=== PATIENT | female | born 1965 | race Caucasian/White ===

== ENCOUNTER 2020-09-01 11:30 | Outpatient (CLI) | payer OTHER, SELFPAY ==
--- NOTE | ~2020-09-01 | MM_ITS ---
EXAMINATION: MM screening [facility] w [place] HISTORY: Screening mammogram TECHNIQUE: Craniocaudal and mediolateral oblique 3-D tomosynthesis images were obtained and synthetic 2-D images were generated. CAD analysis was submitted and interpreted. COMPARISON: 02/19/2019, 11/26/2017, 04/27/2016 bilateral digital screening mammogram examinations BREAST PARENCHYMAL COMPOSITION: There are scattered areas of fibroglandular density. FINDINGS: Occasional small circumscribed low-density opacity is noted including bilateral axillary ta il benign-appearing stable lymph nodes. There is no evidence of suspicious mass, calcification, or ar chitectural distortion to suggest malignancy in either breast. There has been no suspicious interval change. IMPRESSION: 1. No mammographic evidence of malignancy. 2. Recommend routine screening mammography in one year. BI-RADS Category 2: Benign finding(s). Reviewed, dictated and finalized at location A. T TEACHER
== END 2020-09-01 11:31 | disposition home or self-care (01) ==
LOC: ANHIMG 11:34
PROVIDERS: PCP Internal Medicine; Visit Provider Obstetrics & Gynecology
DX: Z12.31 Encounter for screening mammogram for malignant neoplasm of breast (principal)
CPT/HCPCS: 77063; 77067

== ENCOUNTER 2023-06-13 14:04 | Outpatient (CLI) | payer OTHER, SELFPAY ==
--- NOTE | ~2023-06-13 | MM_ITS ---
EXAMINATION: MM screening [facility] BI w [place] HISTORY: Screening mammogram TECHNIQUE: Craniocaudal and mediolateral oblique 3-D tomosynthesis images were obtained and synthetic 2-D images were generated. CAD analysis was submitted and interpreted. COMPARISON: 09/01/2020, 02/18/2019, 11/26/2017 BREAST PARENCHYMAL COMPOSITION: There are scattered areas of fibroglandular density. FINDINGS: No suspicious mass, calcification, or architectural distortion are identified in either raymond ast to suggest malignancy. There has been no suspicious interval change. IMPRESSION: 1. No mammographic evidence of malignancy. 2. Recommend routine screening mammography in one year. BI-RADS Category 1: Negative Reviewed, dictated and finalized at location A.
== END 2023-06-13 14:05 ==
PROVIDERS: PCP Obstetrics & Gynecology; Visit Provider Obstetrics & Gynecology
DX: Z12.31 Encounter for screening mammogram for malignant neoplasm of breast (principal)
CPT/HCPCS: 77063; 77067

== ENCOUNTER 2024-09-12 09:31 | Outpatient (CLI) | payer OTHER, SELFPAY ==
--- NOTE | ~2024-09-12 | MR_ITS ---
EXAMINATION: MR hip LT wo con DATE: 09/12/2024 10:46 INDICATION: Left hip pain TECHNIQUE: Magnetic resonance imaging (MRI) of the left hip was performed without intravenous contra st. Sequences included full-field axial and coronal fluid sensitive FSE STIR and T1-weighted FSE, cor onal of the pelvis is smaller [id number] axial and coronal of the left hip with T2-weighted MAVRIC . COMPARISON: Radiographs dated 08/20/2024 FINDINGS: Bones: Mild lower lumbar levocurvature with severe spondylosis. Moderate osteoarthritis at the right hip. Mi ld bilateral sacroiliac osteoarthritis. There is metallic magnetic field artifact associated with a l eft total hip arthroplasty. There is some fibrofatty Modic type I degenerative endplate changes at th e lower lumbar spine most prominent at the right side of L4-L5. Bone marrow signal is otherwise michael l throughout with no fracture or pathologic marrow replacing process. Fluid: Symmetric physiologic amount of fluid within both hip joints. There is increased fluid signal overlyi ng the bilateral greater trochanters, left greater than right consistent with trochanteric bursitis. Soft tissues: Normal and symmetric muscle bulk and signal in the pelvis and visualized proximal thighs. The bilater al gluteus medius and minimus, iliopsoas and proximal hamstring tendons are normal. There is thickeni ng and mild increased signal along the femoral insertion of the distal left gluteus stanislav tendon co nsistent with moderate tendinopathy without discrete tear. Prominent diverticulosis along the sigmoid colon without adjacent comparison to suggest diverticulitis. 4.1 cm subserosal fibroid arising from the left side of the uterine fundus. No pathologically enlarged pelvic or inguinal lymphadenopathy. IMPRESSION: 1. Moderate tendinopathy without tear of the distal left gluteus stanislav tendon. 2. Bilateral trochanteric bursitis, mild on the right and moderate on the left. 3. Mild lower lumbar levocurvature with severe spondylosis. 4. Moderate right hip and mild bilateral sacroiliac osteoarthritis. 5. Left total hip arthroplasty without evidence joint effusion or adjacent abnormal marrow signal. Reviewed, dictated and finalized at location A. N RICE BROKER IMPRESSION: 1. Moderate tendinopathy without tear of the distal left gluteus stanislav tendon . 2. Bilateral trochanteric bursitis, mild on the right and moderate on the left. 3. Mild lower lumbar levocurvature with severe spondylosis. 4. Moderate right hip and mild bilateral sacroiliac osteoarthritis. 5. Left total hip arthroplasty without evidence joint effusion or adjacent abno rmal marrow signal.
== END 2024-09-12 09:32 | disposition home or self-care (01) ==
PROVIDERS: PCP Physician Assistant Surgical; Visit Provider Physician Assistant Surgical
DX: M70.62 Trochanteric bursitis, left hip (principal); Z96.642 Presence of left artificial hip joint; M47.896 Other spondylosis, lumbar region; M16.0 Bilateral primary osteoarthritis of hip; M46.1 Sacroiliitis, not elsewhere classified
CPT/HCPCS: 73721

== ENCOUNTER 2025-05-10 13:47 | Emergency (ER) | payer OTHER, SELFPAY ==
--- NOTE | 2025-05-10 13:49 | ED.EAR ---
HPI - Ear Problem General Chief complaint: Ear Stated complaint: Stick in L ear Time Seen by Provider: 05/10/25 13:48 Source: patient Mode of arrival: ambulatory Limitations: no limitations History of Present Illness HPI Narrative: Selena is a 59-year-old female patient presenting to the clinic today with complaints of possible eardrum injury/ear pain. She reports she was mowing the lawn on her rider when she was going up against some brush and a stick poked her in the left ear. Is having a swishing sound in her left ear and also sounds as though it was whistles when she blows her nose. Did notice some blood coming from her ear. Does have some muffled/hearing changes to the left ear. Related Data Home Medications ?Medication ?Instructions ?Recorded ?Confirmed ?Last Taken ?Type allopurinol 100 mg tablet 100 mg PO DAILY 08/20/24 11/12/24 Unknown History ergocalciferol (vitamin D2) 50,000 unit PO 08/20/24 11/12/24 Unknown History unit tablet tizanidine 4 mg capsule 4 mg PO QHS PRN 08/20/24 11/12/24 Unknown History ibuprofen 800 mg tablet 800 mg PO Q6H PRN 09/03/24 11/12/24 Unknown History Allergies Allergy/AdvReac Type Severity Reaction Status Date / Time shellfish derived Allergy Intermediate HIVES, Verified 11/12/24 09:31 ITCHY iodine Allergy Unknown unkown Verified 11/12/24 09:31 Review of Systems Review of Systems: Pertinent positives per HPI. Patient denies any fever, chills, rash, headache, visual changes, dizziness, cough, runny nose, sore throat, shortness of breath, chest pain, palpitations, nausea, vomiting, diarrhea, constipation, abdominal pain, or any urinary issues. [facility] Surgical History Surgical History History of carpal tunnel surgery History of back surgery History of cholecystectomy History of hip surgery Family History Family History Mother DVT (deep vein thrombosis) in Social History Social History Smoking status: Never smoker Alcohol intake: current Alcohol use details: Socially Do You Feel Safe in your Home?: Yes Lack of Transportation: No Lack of Food: Never True Current Housing: I Have Housing Concerned About Future Housing: No Difficulty Paying Gas/Electric Bills: No Difficulty Paying for Meds: No Currently Unemployed: No Education: Master's Degree or Higher Difficulty w/ Childcare or Family Care: No Comments At the time of my signature, I reviewed and agree with the nursing past medical, surgical, social, and family history. There is no relevant family history pertinent to the patient complaint. Exam Narrative: General: Well-developed, well nourished, in no apparent distress Head: Normocephalic, atraumatic Eyes: Pupils equally round and reactive to light bilaterally, EOM intact, sclera and conjunctive clear, no discharge, lids normal Ears: Right TMs intact and clear, ear canals clear, no drainage, left TM ruptured at 4:00 of the TM with blood in the ear canal canal, grossly hearing normal. Nose: Nares patent, no discharge, no inflammation, no sinus tenderness. Mouth: Oropharynx without lesions or masses, good dentition, MMM. Neck: Supple, trachea midline, no enlargement of anterior or posterior cervical nodes, no thyroid masses or goiter palpable. Cardio: Regular rate and rhythm, s1 and s2 normal, no murmur appreciated. Resp: Clear to auscultation bilaterally anteriorly and posteriorly, no rhonchi, rales, wheezing or rubs Course Course Emergency Course: Portions of this record may have been created with voice recognition software. Level of Care: Express Care Visit Vital Signs Vital signs: Vital Signs Temperature 36.4 C 05/10/25 13:53 Pulse Rate 63 05/10/25 13:53 Respiratory Rate 18 05/10/25 13:53 Blood Pressure 123/71 05/10/25 13:53 Pulse Oximetry 99 05/10/25 13:53 Oxygen Delivery Room Air 05/10/25 13:53 Temperature 36.4 C 05/10/25 13:53 Pulse Rate 63 05/10/25 13:53 Respiratory Rate 18 05/10/25 13:53 Blood Pressure 123/71 05/10/25 13:53 Pulse Oximetry 99 05/10/25 13:53 Oxygen Delivery Room Air 05/10/25 13:53 Vital signs reviewed Medical Decision Making MDM Narrative Medical decision making narrative: At the time of visit patient is resting comfortably on the exam table. Patient appears to be nontoxic. Complaints of possible eardrum injury/ear pain. She reports she was mowing the lawn on her rider when she was going up against some brush and a stick poked her in the left ear. Is having a swishing sound in her left ear and also sounds as though it was whistles when she blows her nose. Did notice some blood coming from her ear. Does have some muffled/hearing changes to the left ear. On exam patient has left ruptured eardrum 4:00of the TM with blood noted in the ear canal Plan: Patient has traumatic left eardrum rupture. Prescription for ofloxacin ear drops was sent to the pharmacy. Will have patient follow-up with Dr. Hernandez call his office tomorrow to schedule appointment. Supportive measures were discussed with the patient and they voiced understanding discharge instructions and agrees to treatment plan. Return precautions reviewed Differential Diagnosis Differential Diagnosis: Foreign body in the left ear canal, otitis externa, otitis media, eustachian tube dysfunction, cerumen impaction Vital Signs Vital Signs: Vital Signs Temperature 36.4 C 05/10/25 13:53 Pulse Rate 63 05/10/25 13:53 Respiratory Rate 18 05/10/25 13:53 Blood Pressure 123/71 05/10/25 13:53 Pulse Oximetry 99 05/10/25 13:53 Oxygen Delivery Room Air 05/10/25 13:53 Temperature 36.4 C 05/10/25 13:53 Pulse Rate 63 05/10/25 13:53 Respiratory Rate 18 05/10/25 13:53 Blood Pressure 123/71 05/10/25 13:53 Pulse Oximetry 99 05/10/25 13:53 Oxygen Delivery Room Air 05/10/25 13:53 Discharge Plan Discharge Clinical Impression: Traumatic rupture of tympanic membrane Qualifiers: Encounter type: initial encounter Laterality: left Qualified Code(s): S09.22XA - Traumatic rupture of left ear drum, initial encounter Patient Disposition: Home Condition: Stable Instructions: Antibiotic Form, Ruptured Eardrum (ED) Additional Instructions: Eardrum does appear to be ruptured. Instill ofloxacin ear drops as prescribed May take Tylenol/Motrin as needed for pain Do not submerge her head under water, get any water in your ear, or put anything in your ear other than the ear drops. Follow-up with your PCP in 5-7 days if symptoms persist Follow-up with Dr. Hall ENT- call tomorrow to schedule an appointment Patient Language: Romansh Prescriptions: New ofloxacin 0.3 % drops 5 drp otic (ear) BID 5 Days Qty: 5 0RF No Action ibuprofen 800 mg tablet 800 mg PO Q6H PRN allopurinol 100 mg tablet 100 mg PO DAILY ergocalciferol (vitamin D2) 50,000 unit tablet PO tizanidine 4 mg capsule 4 mg PO QHS PRN prednisone 10 mg tablet 10 mg PO BID Qty: 28 0RF meloxicam 15 mg tablet 15 mg PO DAILY Qty: 30 2RF tramadol 50 mg tablet 50 mg PO Q6H Qty: 40 0RF Follow-up/Referrals: Delbert Hall MD [Physician, Ear, Nose, Throat] - 1 Day Referral Note: Traumatic penetrating rupture of left tympanic membrane Clinical Impression: Traumatic rupture of tympanic membrane Maria De Jesus,MD Philomena [Primary Care Provider] Time of Disposition: 14:04 Quality NIHSS Nursing Documentation ED NIHSS nursing documentation: reviewed/agree
--- OUTSIDE RECORDS SUMMARY | 2025-05-10 13:51 | XMS_ITS | Encounter Summary ---
Author Organization [facility] Address [address] [place] [address] Care Team Providers Care Ticket Taker Ferryboat Name Role Phone Jodee Gallardo MD Primary Care Provider + [phone] Tri Centeno NP Primary Care Provider [phone] Philomena Pretty MD Primary Care Provider [phone] Encounter Details Date Type Department Care Team (Late st Contact Info) Description 07/07/2020 [facility] Message Enc [facility] Family & Internal Medicine [address] [id number] [facility] RE:lab results Social History Tobacco Use Types Packs/Day Years Used Date Smoking Tobacco: Never Smokeless Tobacco: Never Alcohol Use Standard Drinks/Week Comments Yes 0 (1 standard drink = 0.6 oz pur e alcohol) social AUDIT-C Answer Date Recorded Frequency of Alcohol Consumption Monthly or less 11/21/2018 Average Number of Drinks 1 or 2 019 Frequency of Binge Drinking Never 11/11 PHQ-2 Answer Date Recorded PHQ-2 Score - If the patient scores above 3, please move on to questions 3-9 0 06/23/2020 Comments No Sex and Gender Information Value Date Recorded Sex Assigned at Female 11/21/2018 10:16 AM CDT Legal Sex Female 7:49 PM CDT Gender Identity Female 11/21/2018 10:16 AM CDT Sexual Orientation Straight 11/21/2018 10 :16 AM CDT COVID-19 Exposure Response Date Recorded In the last month, have you been in contact with someone who was confirmed or suspected to have Coronavirus / COVID-19? No / Unsure 07/06/2020 10:11 AM SAMPLE MAKER ORIGINAL documented as of this encounter Plan of Treatment Not on file documented as of this encounter Visit Diagnoses Not on filedocumented in this encounter Additional Health Concerns Infection Onset Date Last Indicated Resolved Time COVID-19 Rule Out 06/26/2024 06/26/2024 06/26/2024 11:53 AM SAMPLE MAKER ORIGINAL documented as of this encounter Care Teams Ticket Taker Ferryboat Relationship Specialty Start Date End Date Jodee Gallardo MD PCP - General INTERNAL MEDICINE 11/08/18 11/16/22 [place] [address] [employer] [address] [place] [address] PCP - General Nurse Practitioner Family 11/17/2208/05 [place] [address] [employer] [address] [place] [address] PCP - General INTERNAL MEDICINE 06/25/24 documented as of this encounter
--- OUTSIDE RECORDS SUMMARY | 2025-05-10 13:51 | XMS_ITS | Clinical Summary ---
Author Organization [facility] Address [facility] [place] [address] Care Team Providers Care Upper Inspector Name Role Phone Philomena Pretty MD Primary Care Provider Allergies Active Allergy Reactions Criticality Noted Date Comments Shellfish Allergy Shortness of Breath High 3 Medications Cyanocobalamin (B-12) 1000 MCG SL TabIndications:Vit weaver B12 deficiency Place 1 tablet under the tongue daily. 30 tablet 10/19/19 22 Active Additional Information Patient not taking.Reported on 07/18/2024 metFORMIN ER, OSM, (FORTAMET) 500 MG 24 hr tabletIndications: PCO (polycystic ovaries) Take 1 tablet (500 mg total) by mouth daily with breakfast. 90 tablet 08/09/20 22 Active albuterol sulfate HFA (PROAIR HFA) 108 (90 Base) MCG/ACT inhalerIndications :Mild intermittent asthma without complication (HHS/HCC) Inhale 1-2 puffs into the lungs every 6 (six) hours as needed for Wheezing. 18 g 11 06/26/20 24 Active colchicine 0.6 MG tabletIndications: Gout of multiple sites, unspecified cause, unspecified chronicity Take 1 tablet (0.6 mg total) by mouth daily. 90 tablet 3 07/25/20 24 Active vitamin D2, ergocalciferol, (DRISDOL) 1.25 mg capsuleIndications :Vitamin D deficiency Take 1 capsule (1.25 mg total) by mouth every 7 days. 24 capsule 1 07/25/20 24 Active diclofenac EC (VOLTAREN) 75 MG tabletIndications: Primary osteoarthritis involving multiple joints Take 1 tablet (75 mg total) by mouth daily as needed. 90 tablet 1 09/09/19 Active allopurinol (ZYLOPRIM) 100 MG tabletIndications: Gout of multiple sites, unspecified cause, unspecified chronicity TAKE 1 TABLET(100 MG) BY MOUTH DAILY 90 tablet 1 02/01/20 Active Active Problems Problem Noted Date Diagnosed Date Trochanteric bursitis, left hip 10/01/2024 Low back pain 10/01/2024 Gout of multiple sites, unsp ecified cause, unspecified chronicity 09/22/2024 Vitamin D deficiency 09/22/2024 Right low back pain 08/11/2022 Hip stiffness, left 12/01/2020 Left-sided low back pain with sciatica Dermatitis 06/23/2020 Anemia, unspecified type 06/23/2020 Stress fracture of metatarsa l bone of right foot with routine healing, subsequent encounter 10/10/2019 Foraminal stenosis of cervical region 09/01/2019 BMI 31.0-31.9,adult 11/08/2017 Osteoarthritis of multiple joints 01/07/2016 Vitamin B12 deficiency 01/07/2016 Asthma, intermittent (HHS/HCC) 10/21/2014 Acid reflux disease 08/27/2012 History of left hip replacement 01/04/2010 Resolved Problems Problem Noted Date Diagnosed Date Resolved Date Screen for colon cancer 02/04/201804/13 Immunizations Immunization Administration Dates Next Due Fluzone 6 Months+ Quad (0.5 mL Prefilled Syringe ) 08/09/2022 Influenza (Generic) 06/05/2017 Influenza Adult (Generic) 06/05/2017 MODERNA COVID-19 (12+) MRNA, LNP-S, PF, 100 MCG/ 0.5 ML DOSE 11/02/2020 PFIZER COVID-19 BIVALENT (12 +) mRNA, LNP-S, PF, 30 MCG/0.3 ML DOSE 08/09/2022 Tdap (Adacel) 01/05/2016 Tdap (Generic) 01/05/2016 Family History Medical History Relation Comments Diabetes Brother Epilepsy Brother Hypertension Father Relation Status Comments Brother Father Social History Tobacco Use Types Packs/Day Years Used Date Smoking Tobacco: Never Smokeless Tobacco: Never Tobacco Cessation:Counseling Given: No Comments:non smoker Alcohol Use Standard Drinks/Week Comments Yes 0 (1 standard drink = 0.6 oz pur e alcohol) social AUDIT-C Answer Date Recorded Frequency of Alcohol Consumption Monthly or less 11/21/2018 Average Number of Drinks 1 or 2 019 Frequency of Binge Drinking Never 11/11 PHQ-2 Answer Date Recorded Patient Health Questionnaire-2 Score 0 07/11/2024 Comments No Sex and Gender Information Value Date Recorded Sex Assigned at Female 11/21/2018 10:16 AM CDT Legal Sex Female 7:49 PM CDT Gender Identity Female 11/21/2018 10:16 AM CDT Sexual Orientation Straight 11/21/2018 10 :16 AM CDT Last Filed Vital Signs Vital Sign Reading Time Taken Comments Blood Pressure 122/77 07/18/2024 10:08 AM PRIME BROKER Pulse 64 07/18/2024 10:08 AM PRIME BROKER Temperature 36.4 C (97.6 F) 07/18/2024 10:08 AM PRIME BROKER Respiratory Rate 16 07/18/2024 10:08 AM PRIME BROKER Oxygen Saturation 98% 07/18/2024 10:08 AM PRIME BROKER Inhaled Oxygen Concentration - - Weight 86.3 kg (190 lb 3.2 oz) 07/18/2024 10:08 AM PRIME BROKER Height 167.6 cm (5' 6) 07/18/2024 10:08 AM PRIME BROKER Body Mass Index 30.7 07/18/2024 10:08 AM PRIME BROKER Plan of Treatment Health Maintenance Due Date Last Done Comments Cervical Cancer Screening Pa p Smear (Age 30 to 64) Every 3 Years 1963 Annual Physical 11/29/1966 Pneumococcal Vaccine: 50+ Years (1 of 2 - PCV) 11/29/1982 Cervical Cancer Screening Pa p with HPV Testing (Age 30 to 64) Every 5 Years 11/29/1993 Cervical Cancer Screening wi th HPV 11/29/1993 Zoster Vaccines (1 of 2) 11/29/2013 Mammogram Screening 09/01/2022 09/01/2020, 09/01/2020 RSV Immunization or 60+ Years (1 - Risk 60-74 years 1-dose series) 2023 PHQ-2 (Physician Milmay) 08/13/2024 07/11/2024 COVID-19 Vaccine (3 - 2024-2 6 season) 2025 08/09/2022, 11/02/2020 DTaP, Tdap and Td Vaccines ( 3 - Td or Tdap) 01/04/2026 01/05/2016, 01/05/2016 Colorectal Cancer Screening Colonoscopy (10 Years) 12/27/2028 12/27/2018 Hepatitis C Completed 08/11/2022, 10/12/2021 Meningococcal B Vaccine Aged Out No l onger eligible based on patient's age to complete this topic Meningococcal Vaccine Aged Out No liz amado eligible based on patient's age to complete this topic RSV Immunizations Under 20 Months Aged Out No longer eligible b ased on patient's age to complete this topic Procedures Procedure Name Priority Date/Time Associated Diagnosis Comments HEPATITIS C ANTIBODY Routine 08/11/2022 2:55 PM PRIME BROKER Encounter for hepatitis C screening test for low risk patient MAMMOGRAM GENERIC (SCAN ORDER) 09/01/2020 COLONOSCOPY GENERIC (SCAN ORDER) 12/27/2018 from Last 3 Months or Most Recently Relevant to Health Maintenance Results * HEPATITIS C AB ([facility] ONLY) (08/11/2022 2:55 PM PRIME BROKER) HEPATITIS C AB NON-REACTI VE NON-REACTI VE 08/11/2022 8:07 PM PRIME BROKER [facility] 08/11/2022 2:55 PM PRIME BROKER Jodee Gallardo MD LABORATORY Final Result [facility] [address] [place] [address], [place] [phone] * MAMMOGRAM GENERIC (09/01/2020) Anatomical Region Laterality Modality Other 09/01/2020 Narrative 09/01/2020 Ordered by an unspecified provider. us Documents Scanned SCANNING Final Result * COLONOSCOPY GENERIC (12/27/2018) 12/27/2018 Narrative 12/27/2018 Ordered by an unspecified provider. us Documents Scanned SCANNING Final Result from Last 3 Months or Most Recently Relevant to Health Maintenance Insurance [employer] Care Teams Upper Inspector Relationship Specialty Start [place] [id number] [address] PCP - General INTERNAL MEDICINE 06/25/24
--- OUTSIDE RECORDS SUMMARY | 2025-05-10 13:51 | XMS_ITS | Encounter Summary ---
Author Organization [facility] Address [address] [place] [address] Care Team Providers Care Bronze Chaser Name Role Phone Jodee Gallardo MD Primary Care Provider + [phone] Tri Centeno NP Primary Care Provider + [phone] Philomena Pretty MD Primary Care Provider [phone] Encounter Details Date Type Department Care Team (Late st Contact Info) Description 06/29/2020 Prep for Procedure [facility] [address] [place] [address] Irais Chung MD [address] [place] [address] Social History Tobacco Use Types Packs/Day Years [...] have Coronavirus / COVID-19? No / Unsure 06/29/2020 3:10 PM GARLAND MACHINE OPERATOR documented as of this encounter Plan of Treatment Not on file documented as of this encounter Results * PRE-SURGICAL/PRE-PROCEDURE CORONAVIRUS (COVID 19) (07/03/2020 10:07 AM GARLAND MACHINE OPERATOR) CORONAVIRUS SARS COV 2 PCR (RESP) NOT DETECTED NOT DETECTED 07/05/2020 2:45 AM GARLAND MACHINE OPERATOR [employer] [facility] Comment: A Not Detected (negative) test result for this test means that SARS- CoV-2 RNA was not present in the specimen above the limit of detection. A negative result does not rule out the possibility of COVID-19 and should not be used as the sole basis for treatment or patient management decisions. If COVID-19 is still suspected, based on exposure history together with other clinical findings, re-testing should be considered in consultation with public health authorities. Laboratory test results should always be considered in the context of clinical observations and epidemiological data in making a final diagnosis and patient management decisions. Please review the Fact Sheets and FDA authorized labeling available for health care providers and patients using the following websites: https://www.[employer].YiBai-shopping/home/Covid-19/HCP/NAAT/fact-sheet2 https://www.[employer].YiBai-shopping/home/Covid-19/Patients/NAAT/ fact-sheet2 This test has been authorized by the FDA under an Emergency Use Authorization (EUA) for use by authorized laboratories. Due to the current public health emergency, [employer] is receiving a high volume of samples from a wide variety of swabs and media for COVID-19 testing. In order to serve patients during this public health crisis, samples from appropriate clinical sources are being tested. Negative test results derived from specimens received in non-commercially manufactured viral collection and transport media, or in media and sample collection kits not yet authorized by FDA for COVID-19 testing should be cautiously evaluated and the patient potentially subjected to extra precautions such as additional clinical monitoring, including collection of an additional specimen. Methodology: Nucleic Acid Amplification Test (NAAT) includes RT-PCR or TMA Additional information about COVID-19 can be found at the [employer] website: www.AmericanTowns.com.YiBai-shopping/Covid19. Test performed at [facility] [place] [address] [address] [facility] [place] [address] Director: BEN MARCANO DO,MPH FIRST TEST NO 07/03/2020 7:16 AM [facility] EMPLOYED IN HEALTHCARE NO 07/03/2020 7:16 AM [facility] SYMPTOMATIC DEFINED BY CDC NO 07/03/2020 7:16 AM [facility] DATE OF SYMPTOM ONSET UNKNOWN 07/03/2020 10:12 AM [facility] HOSPITALIZATION STATUS NO 07/03/2020 7:16 AM [facility] PATIENT IN ICU NO 07/03/2020 7:16 AM [facility] RESIDENT OF [facility] NO 07/03/2020 7:16 AM [facility] NOT 07/03/2020 7:16 AM [facility] PATIENT'S RACE WHITE OR 07/03/2020 7:16 AM [facility] ETHNICITY NONHISPANIC 07/03/2020 7:16 AM [facility] SOURCE (QST) NASOPHARYNGEAL SWAB 07/03/2020 7:16 AM [facility] NASOPHARYNGEAL SWAB / Unknown 07/03/2020 10:07 AM GARLAND MACHINE OPERATOR us Irais Chung MD MICROBIOLOGY - GENERAL ORDERABLE S Final Result [facility] [address] [place] [address], [place] [phone] [facility] [address] [place] [address], documented in this encounter Visit Diagnoses Diagnosis Pre-op testing- Primary Preoperative examination, unspecified documented in this encounter Additional Health Concerns Infection Onset Date Last Indicated Resolved Time COVID-19 Rule Out 07/03/2020 07/03/2020 07/05/2020 2:45 AM GARLAND MACHINE OPERATOR COVID-19 Rule Out 06/26/2024 06/26/2024 06/26/2024 11:53 AM GARLAND MACHINE OPERATOR documented as of this encounter Care Teams Bronze Chaser Relationship Specialty Start Date End Date Jodee Gallardo MD PCP - General INTERNAL MEDICINE 11/08/18 11/16/22 [place] [address] [place], [place] [address] PCP - General Nurse Practitioner Family 11/17/2208/05 [place] [address] [place], [place] [address] PCP - General INTERNAL MEDICINE 06/25/24 documented as of this encounter
--- OUTSIDE RECORDS SUMMARY | 2025-05-10 13:51 | XMS_ITS | Encounter Summary ---
Author Organization [facility] Address [facility] [place] [address] Care Team Providers Care Space Controller Name Role Phone Tri Centeno NP Primary Care Provider + [phone] Philomena Pretty MD Primary Care Provider +[phone]- [phone] Encounter Details Date Type Department Care Team (Late st Contact Info) Description 02/07/2023 [employer] Message Counts include 234 beds at the [facility] - [facility] [address] [place], [place] [id number] [employer], [facility] Provider Air Quality Message Social History Tobacco Use Types Packs/Day Years Used Date Smoking Tobacco: Never Smokeless Tobacco: Never Comments:non smoker Alcohol Use Standard Drinks/Week Comments [...] please move on to questions 3-9 0 07/12/2022 Comments No Sex and Gender Information Value Date Recorded Sex Assigned at Female 11/21/2018 10:16 AM CDT Legal Sex Female 7:49 PM CDT Gender Identity Female 11/21/2018 10:16 AM CDT Sexual Orientation Straight 11/21/2018 10 :16 AM CDT documented as of this encounter Plan of Treatment Not on file documented as of this encounter Visit Diagnoses Not on filedocumented in this encounter Additional Health Concerns Infection Onset Date Last Indicated Resolved Time COVID-19 Rule Out 06/26/2024 06/26/2024 06/26/2024 11:53 AM METROLOGY TECHNICIAN Assessment Noted Time PHQ-9 Depression Total Score: 1 10/13/19 11:33 AM METROLOGY TECHNICIAN documented as of this encounter Care Teams Space Controller Relationship Specialty Start Date End Date Tri Centeno APPLICATIONS TESTER [address] [place] [address] PCP - General Nurse Practitioner Family 11/17/2208/05 [place] [address] [facility] [employer] [employer] [address] [place] [address] PCP - General INTERNAL MEDICINE 06/25/24 documented as of this encounter
--- OUTSIDE RECORDS SUMMARY | 2025-05-10 13:51 | XMS_ITS | Encounter Summary ---
Author Organization [facility] Address [address] [place] [address] Care Team Providers Care Building Maintenance Custodian Name Role Phone Philomena Pretty MD Primary Care Provider +[phone] Encounter Details Date Type Department Care Team (Late st Contact Info) Description 07/25/2024 [employer] Message [employer] [facility] Medical Group Family & Internal Medicine [address] [address] Jossie, [facility] Provider questions Social History Tobacco Use Types Packs/Day Years [...] filedocumented in this encounter Additional Health Concerns Assessment Noted Time PHQ-9 Depression Total Score: 6 06/26/20 24 11:56 AM LAUNDRY WORKER documented as of this encounter Care Teams Building Maintenance Custodian Relationship Specialty [place] [address] [address] PCP - General INTERNAL MEDICINE 06/25/24 documented as of this encounter
--- OUTSIDE RECORDS SUMMARY | 2025-05-10 13:51 | XMS_ITS | Encounter Summary ---
Author Organization [facility] Address [address] [place] [address] Care Team Providers Care Sap Integration Architect Name Role Phone Jodee Gallardo MD Primary Care Provider + [phone] Tri Centeno NP Primary Care Provider + [phone] Philomena Pretty MD Primary Care Provider [phone] Encounter Details Date Type Department Care Team (Late st Contact Info) Description 12/31/2019 Hosp Visit [facility] Physical Therapy [address] [place] [address] Celena Briggs, PT Social History Tobacco Use Types Packs/Day Years Used Date Smoking Tobacco: Never Smokeless Tobacco: Never Alcohol Use Standard Drinks/Week Comments Yes 0 (1 standard drink = 0.6 oz pur e alcohol) social AUDIT-C Answer Date Recorded Frequency of Alcohol Consumption Monthly or less 11/21/2018 Average Number of Drinks 1 or 2 019 Frequency of Binge Drinking Never 11/11 Comments No Sex and Gender Information Value [...] have Coronavirus / COVID-19? No / Unsure 12/24/2019 2:11 PM CDT documented as of this encounter Plan of Treatment Not on file documented as of this encounter Visit Diagnoses Not on filedocumented in this encounter Additional Health Concerns Infection Onset Date Last Indicated Resolved Time COVID-19 Rule Out 07/03/2020 07/03/2020 07/05/2020 2:45 AM PROFESSOR OF GEOLOGY COVID-19 Rule Out 06/26/2024 06/26/2024 06/26/2024 11:53 AM PROFESSOR OF GEOLOGY documented as of this encounter Care Teams Sap Integration Architect Relationship Specialty Start Date End Date Jodee Gallardo MD PCP - General INTERNAL MEDICINE 11/08/18 11/16/22 [place] [address] [email or web address] [place] [address] PCP - General Nurse Practitioner Family 11/17/2208/05 [place] [address] [email or web address] [place] [address] PCP - General INTERNAL MEDICINE 06/25/24 documented as of this encounter
--- OUTSIDE RECORDS SUMMARY | 2025-05-10 13:51 | XMS_ITS | Encounter Summary ---
Author Organization [facility] Address [facility] [place] [address] Care Team Providers Care Financial Cost Analyst Name Role Phone Jodee Gallardo MD Primary Care Provider + [phone] Tri Centeno NP Primary Care Provider + [phone] Philomena Pretty MD Primary Care Provider [phone] Encounter Details Date Type Department Care Team (Late st Contact Info) Description 12/27/2018 PHARMACY STUDENT ONLY [facility] Medical Group Priority Care - [address] [place] [address] Scanned, Documents Social History Tobacco Use Types Packs/Day Years [...] AM CDT documented as of this encounter OR Notes * Op Note - Zscanned, Documents - 12/27/2018 12:00 AM CDT DEVANTE PAINTER MD: ACCT: [id number] ADMIT/SERVICE DATE: 12/27/18 DISCHARGE DATE: 12/27/18 : 1965 PT TYPE: DEP SDC SEX: F ORD SITE: [facility] CHART DOCUMENT OPERATION RECORD DATE OF OPERATION: 12/27/2018 HISTORY: 53-YEAR-OLD FEMALE PRESENTS FOR A SCREENING COLONOSCOPY EVALUATION. PROCEDURE NOTE: INFORMED CONSENT OBTAINED EARLIER. PATIENT WAS SEEN IN THE OR, PLACED IN THE SUPINE LATERAL DECUBITUS POSITION AND SEDATED UNDER MAC ANESTHESIA. RECTAL EXAM NEGATIVE. PCF-190 COLONOSCOPE LUBRICATED AND INSERTED INTO THE RECTUM AND ADVANCED ALL THE WAY TO THE CECUM. PREP WAS EXCELLENT. CECUM WAS IDENTIFIED BY THE ILEOCECAL VALVE AND THE APPENDICEAL ORIFICE. CECUM, ASCENDING COLON, TRANSVERSE COLON, DESCENDING COLON, SIGMOID, AND RECTUM ARE ALL CAREFULLY VISUALIZED UPON WITHDRAWAL AND FOUND TO BE NEGATIVE. RETROFLEXION REVEALED MILD HEMORRHOIDS. SCOPE WITHDRAWN. FINDINGS: MILD HEMORRHOIDS, OTHERWISE NEGATIVE COLONOSCOPY TO THE CECUM WITH EXCELLENT BOWEL PREP. PLAN: RECOMMEND SCREENING COLONOSCOPY EVERY 5 TO 10 YEARS BASED ON RISK FACTORS. ELECTRONICALLY SIGNED BY SANDHYA GAMING MD 12/27/2018 01:30 P PK/RC 12/27/2018 12/27/2018 11:37 A JOB NO: [id number] DOC NO: [id number] CC: MD SANDHYA HAQUE MD documented in this encounter Plan of Treatment Not on file documented as of this encounter Visit Diagnoses Not on filedocumented in this encounter Additional Health Concerns Infection Onset Date Last Indicated Resolved Time COVID-19 Rule Out 07/03/2020 07/03/2020 07/05/2020 2:45 AM COOPERATIVE EXTENSION AGENT COVID-19 Rule Out 06/26/2024 06/26/2024 06/26/2024 11:53 AM COOPERATIVE EXTENSION AGENT documented as of this encounter Care Teams Financial Cost Analyst Relationship Specialty Start Date End Date Jodee Gallardo MD PCP - General INTERNAL MEDICINE 11/08/18 11/16/22 [place] [address] [place] [address] PCP - General Nurse Practitioner Family 11/17/2208/05 [place] [address] [facility] [address] [place] [address] PCP - General INTERNAL MEDICINE 06/25/24 documented as of this encounter
--- OUTSIDE RECORDS SUMMARY | 2025-05-10 13:52 | XMS_ITS | Encounter Summary ---
Author Organization [facility] Address [address] [place] [address] Care Team Providers Care Coach Operator Name Role Phone Philomena Pretty MD Primary Care Provider +[phone]- [phone] Encounter Details Date Type Department Care Team (Late st Contact Info) Description 07/18/2024 [employer]ant System[employer] Message Enc [facility] Medical Group Family & Internal Medicine [facility] [address] [place] [address] [place] [address] [place] [address] X-ray results please. Social History Tobacco Use Types Packs/Day Years [...] Total Score: 6 06/26/20 24 11:56 AM DIRECTOR PRINT documented as of this encounter Care Teams Coach Operator Relationship Specialty [place] [address] [place] [address] PCP - General INTERNAL MEDICINE 06/25/24 documented as of this encounter
[2025-05-10 13:53] VITALS: BP 123/71; PULSE 63; RESP 18; TEMP 36.4; O2SAT 99
== END 2025-05-10 14:26 | disposition home or self-care (01) ==
PROVIDERS: Emergency Provider Nurse Practitioner Family; PCP Internal Medicine
DX: S09.22XA Traumatic rupture of left ear drum, initial encounter (principal); W22.8XXA Striking against or struck by other objects, initial encounter
CPT/HCPCS: 99213; G0463

== ENCOUNTER 2025-06-02 08:03 | Outpatient (CLI) | payer OTHER, SELFPAY ==
--- OUTSIDE RECORDS SUMMARY | 2025-06-02 08:10 | XMS_ITS | Encounter Summary ---
Author Organization [facility] Address [address] [place] [address] Care Team Providers Care Import/Export Clerk Name Role Phone Philomena Pretty MD Primary Care Provider [phone] Encounter Details Date Type Department Care Team (Late st Contact Info) Description 07/18/2024 Media Time Conseilt Message Enc [facility] Medical Group Family & Internal Medicine [facility] [address] [place] [address] [place] [address] [place] [address] X-ray results please. Social History [...] Total Score: 6 06/26/20 24 11:56 AM PHYSICAL THERAPY RESIDENT documented as of this encounter Care Teams Import/Export Clerk Relationship Specialty [place] [address] [place] [address] PCP - General INTERNAL MEDICINE 06/25/24 documented as of this encounter
--- OUTSIDE RECORDS SUMMARY | 2025-06-02 08:10 | XMS_ITS | Encounter Summary ---
Author Organization [facility] Address [address] [place] [address] Care Team Providers Care Timber Inspector Name Role Phone Jodee Gallardo MD Primary Care Provider + [phone] Tri Centeno NP Primary Care Provider + [phone] Philomena Pretty MD Primary Care Provider [phone] Encounter Details Date Type Department Care Team (Late st Contact Info) Description 06/29/2020 Prep for Procedure [facility] [address] [place] [address] Irais Chung MD [address] [place] [address] Social History Tobacco Use Types Packs/Day [...] COVID-19? No / Unsure 06/29/2020 3:10 PM SKI MOLDER documented as of this encounter Plan of Treatment Not on file documented as of this encounter Results * PRE-SURGICAL/PRE-PROCEDURE CORONAVIRUS (COVID 19) (07/03/2020 10:07 AM SKI MOLDER) CORONAVIRUS SARS COV 2 PCR (RESP) NOT DETECTED NOT DETECTED 07/05/2020 2:45 AM SKI MOLDER [facility] [facility] Comment: A Not Detected (negative) test result [...] providers and patients using the following websites: https://www.[employer]..STWA/home/Covid-19/HCP/NAAT/fact-sheet2 https://www.[employer]STWA/home/Covid-19/Patients/NAAT/ fact-sheet2 This test has been authorized by the FDA under an Emergency Use Authorization (EUA) for use by authorized laboratories. Due to the current public health emergency, [facility] is receiving a high volume of samples [...] about COVID-19 can be found at the [facility] website: www.[employer].STWA/Covid19. Test performed at [facility] [address] [facility] [place] [address] Director: BEN MARCANO DO,MPH FIRST TEST NO 07/03/2020 7:16 AM [facility] EMPLOYED IN HEALTHCARE NO 07/03/2020 7:16 AM [facility] SYMPTOMATIC DEFINED BY CDC NO 07/03/2020 7:16 AM [facility] DATE OF SYMPTOM ONSET UNKNOWN 07/03/2020 10:12 AM [facility] HOSPITALIZATION STATUS NO 07/03/2020 7:16 AM [facility] PATIENT IN ICU NO 07/03/2020 7:16 AM [facility] RESIDENT OF [facility] NO 07/03/2020 7:16 AM [facility] NOT 07/03/2020 7:16 AM [facility] PATIENT'S RACE WHITE OR 07/03/2020 7:16 AM [facility] ETHNICITY NONHISPANIC 07/03/2020 7:16 AM [facility] SOURCE (QST) NASOPHARYNGEAL SWAB 07/03/2020 7:16 AM [facility] NASOPHARYNGEAL SWAB / Unknown 07/03/2020 10:07 AM SKI MOLDER us Irais Chung MD MICROBIOLOGY - GENERAL ORDERABLE S Final Result [facility] [address] [place] [address], [place] [phone] [facility] [address] [place] [address], documented in this encounter Visit Diagnoses Diagnosis Pre-op testing- Primary Preoperative examination, unspecified documented in this encounter Additional Health Concerns Infection Onset Date Last Indicated Resolved Time COVID-19 Rule Out 07/03/2020 07/03/2020 07/05/2020 2:45 AM SKI MOLDER COVID-19 Rule Out 06/26/2024 06/26/2024 06/26/2024 11:53 AM SKI MOLDER documented as of this encounter Care Teams Timber Inspector Relationship Specialty Start Date End Date Jodee Gallardo MD PCP - General INTERNAL MEDICINE 11/08/18 11/16/22 [place] [address] [place], [place] [id number] PCP - General Nurse Practitioner Family 11/17/2208/05 [place] [address] [place], [place] [address] PCP - General INTERNAL MEDICINE 06/25/24 documented as of this encounter
--- OUTSIDE RECORDS SUMMARY | 2025-06-02 08:10 | XMS_ITS | Encounter Summary ---
Author Organization [facility] Address [address] [place] [address] Care Team Providers Care Internet Salesperson Name Role Phone Philomena Pretty MD Primary Care Provider +[phone] Encounter Details Date Type Department Care Team (Late st Contact Info) Description 07/25/2024 RF Arrays Message [facility] Medical Group Family & Internal Medicine [address] [address] Jossie, [facility] Provider questions Social History Tobacco Use Types [...] Total Score: 6 06/26/20 24 11:56 AM AUXILIARY POWERPLANT OPERATOR documented as of this encounter Care Teams Internet Salesperson Relationship Specialty [place] [address] [address] PCP - General INTERNAL MEDICINE 06/25/24 documented as of this encounter
--- OUTSIDE RECORDS SUMMARY | 2025-06-02 08:10 | XMS_ITS | Encounter Summary ---
Author Organization [facility] Address [address] [place] [address] Care Team Providers Care Credit Union Manager Name Role Phone Jodee Gallardo MD Primary Care Provider + [phone] Tri Centeno NP Primary Care Provider + [phone] Philomena Pretty MD Primary Care Provider [phone] Encounter Details Date Type Department Care Team (Late st Contact Info) Description 12/31/2019 Hosp Visit [facility] Physical Therapy [address] [place] [address] Celena Briggs, PT Social History [...] Rule Out 07/03/2020 07/03/2020 07/05/2020 2:45 AM MEAT SEAFOOD ASSOCIATE COVID-19 Rule Out 06/26/2024 06/26/2024 06/26/2024 11:53 AM MEAT SEAFOOD ASSOCIATE documented as of this encounter Care Teams Credit Union Manager Relationship Specialty Start Date End Date Jodee Gallardo MD PCP - General INTERNAL MEDICINE 11/08/18 11/16/22 [place] [address] [address] [place] [address] PCP - General Nurse Practitioner Family 11/17/2208/05 [place] [address] [address] [place] [address] PCP - General INTERNAL MEDICINE 06/25/24 documented as of this encounter
--- OUTSIDE RECORDS SUMMARY | 2025-06-02 08:10 | XMS_ITS | Encounter Summary ---
Author Organization [facility] Address [address] [place] [address] Care Team Providers Care Strickler Attendant Name Role Phone Jodee Gallardo MD Primary Care Provider + [phone] Tri Centeno NP Primary Care Provider + [phone] Philomena Pretty MD Primary Care Provider [phone] Encounter Details Date Type Department Care Team (Late st Contact Info) Description 07/07/2020 The [employer] Music [employer] Message Enc [facility] Medical Group Family & Internal Medicine [address] [address] [facility] RE:lab results Social History Tobacco Use [...] COVID-19? No / Unsure 07/06/2020 10:11 AM LABOR UNION BUSINESS REPRESENTATIVE documented as of this encounter Plan of Treatment Not on file documented as of this encounter Visit Diagnoses Not on filedocumented in this encounter Additional Health Concerns Infection Onset Date Last Indicated Resolved Time COVID-19 Rule Out 06/26/2024 06/26/2024 06/26/2024 11:53 AM LABOR UNION BUSINESS REPRESENTATIVE documented as of this encounter Care Teams Strickler Attendant Relationship Specialty Start Date End Date Jodee Gallardo MD PCP - General INTERNAL MEDICINE 11/08/18 11/16/22 [place] [address] [address] [address] [address] [place] [address] PCP - General Nurse Practitioner Family 11/17/2208/05 [place] [address] [address] [place] [address] PCP - General INTERNAL MEDICINE 06/25/24 documented as of this encounter
--- OUTSIDE RECORDS SUMMARY | 2025-06-02 08:10 | XMS_ITS | Encounter Summary ---
Author Organization [facility] Address [facility] access [facility] [place] [address] Care Team Providers Care Flame Planer Name Role Phone Tri Centeno NP Primary Care Provider + [phone] Philomena Pretty MD Primary Care Provider +[phone]- [phone] Encounter Details Date Type Department Care Team (Late st Contact Info) Description 02/07/2023 Music [employer] Message Critical access hospital Medical Group - [facility] [address] [place], [place] [address] [employer], [facility] Provider Air Quality Message Social History Tobacco [...] Rule Out 06/26/2024 06/26/2024 06/26/2024 11:53 AM MELANGEUR OPERATOR Assessment Noted Time PHQ-9 Depression Total Score: 1 10/13/19 11:33 AM MELANGEUR OPERATOR documented as of this encounter Care Teams Flame Planer Relationship Specialty Start Date End Date Tri Centeno ENTERPRISE RESOURCE ANALYST [address] [place] [address] PCP - General Nurse Practitioner Family 11/17/2208/05 [place] [address] [facility] [address] [place] [address] PCP - General INTERNAL MEDICINE 06/25/24 documented as of this encounter
--- OUTSIDE RECORDS SUMMARY | 2025-06-02 08:10 | XMS_ITS | Encounter Summary ---
Author Organization [facility] Address Formerly [facility], [facility] [place] [address] Care Team Providers Care Diesel Truck Crane Operator Name Role Phone Jodee Gallardo MD Primary Care Provider + [phone] Tri Centeno NP Primary Care Provider + [phone] Philomena Pretty MD Primary Care Provider [phone] Encounter Details Date Type Department Care Team (Late st Contact Info) Description 12/27/2018 DAYCARE TEACHER ONLY [facility] Priority Care - [address] [place] [address] Scanned, Documents Social History Tobacco [...] 12:00 AM CDT DEVANTE PAINTER MD: ACCT: [id number] ADMIT/SERVICE DATE: 12/27/18 DISCHARGE DATE: 12/27/18 : 1965 PT TYPE: DEP SDC SEX: F ORD SITE: [facility] CHART DOCUMENT OPERATION RECORD DATE [...] PK/RC 12/27/2018 12/27/2018 11:37 A JOB NO: [id number] DOC NO: [id number] CC: MD SANDHYA HAQUE MD documented in this encounter Plan of Treatment Not on file documented as of this encounter Visit Diagnoses Not on filedocumented in this encounter Additional Health Concerns Infection Onset Date Last Indicated Resolved Time COVID-19 Rule Out 07/03/2020 07/03/2020 07/05/2020 2:45 AM MANAGER REPORTING COVID-19 Rule Out 06/26/2024 06/26/2024 06/26/2024 11:53 AM MANAGER REPORTING documented as of this encounter Care Teams Diesel Truck Crane Operator Relationship Specialty Start Date End Date Jodee Gallardo MD PCP - General INTERNAL MEDICINE 11/08/18 11/16/22 [place] [address] [place] [address] PCP - General Nurse Practitioner Family 11/17/2208/05 [place] [address] [facility] [address] [place] [address] PCP - General INTERNAL MEDICINE 06/25/24 documented as of this encounter
--- OUTSIDE RECORDS SUMMARY | 2025-06-02 08:10 | XMS_ITS | Clinical Summary ---
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 Oxygen Saturation 98% 07/18/2024 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 Inhaled Oxygen Concentration - - Weight 86.3 kg (190 lb 3.2 oz) 07/18/2024 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 Height 167.6 cm (5' 6) 07/18/2024 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 Body Mass Index 30.7 07/18/2024 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.] HEPATITIS C ANTIBODY Routine 08/11/2022 2:55 PM [employer]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 Encounter for hepatitis C screening test for low risk patient MAMMOGRAM GENERIC (SCAN ORDER) 09/01/2020 COLONOSCOPY GENERIC (SCAN ORDER) 12/27/2018 from Last 3 Months or Most Recently Relevant to Health Maintenance Results * HEPATITIS C AB ([facility] ONLY) (08/11/2022 2:55 PM [employer]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) HEPATITIS C AB NON-REACTI VE NON-REACTI VE 08/11/2022 8:07 PM SAN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 [facility] 08/11/2022 2:55 PM [employer]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 us Jodee Gallardo MD LABORATORY Final Result [facility] [address] [place] [address], [place] [phone] * MAMMOGRAM GENERIC (09/01/2020) Anatomical Region Laterality Modality Other 09/01/2020 Narrative 09/01/2020 Ordered by an unspecified provider. us Documents Scanned SCANNING Final Result * COLONOSCOPY GENERIC (12/27/2018) 12/27/2018 Narrative 12/27/2018 Ordered by an unspecified provider. us Documents Scanned SCANNING Final Result from Last 3 Months or Most Recently Relevant to Health Maintenance Insurance [employer] Care Teams Steward/Stewardess Banquet Relationship Specialty Start [place] [address] [facility] [address] [place] [address] PCP - General INTERNAL MEDICINE 06/25/24
== END 2025-06-02 08:04 | disposition home or self-care (01) ==
LOC: ANHAUDIO 08:04
PROVIDERS: PCP Internal Medicine; Visit Provider Otolaryngology
DX: H93.8X2 Other specified disorders of left ear (principal); S09.22XA Traumatic rupture of left ear drum, initial encounter; X58.XXXA Exposure to other specified factors, initial encounter; H74.8X2 Other specified disorders of left middle ear and mastoid
CPT/HCPCS: 92557; 92567